=== PATIENT | female | born 1960 | race African-American/Black ===

== ENCOUNTER 2019-09-21 10:34 | Emergency (ER) | payer OTHER ==
[~2019-09-21] VITALS: Ht 162.6 cm; Wt 59.0 kg
--- NOTE | 2019-09-21 10:53 | Emergency Room Report ---
History of Present Illness General Chief Complaint: Chest Pain Source: Patient, EMS Present Illness HPI Disclaimer: Please note that this report is being documented using DRAGON technology. This can lead to erroneous entry secondary to incorrect interpretation by the dictating instrument. HPI: 59-year-old female presents for evaluation of chest pain. She has a history of diet-controlled diabetes and hypertension. She reports a sharp stabbing left-sided chest pain worse by movement and deep inspiration beginning last night. She has had this sensation before but did not seek medical attention at that time. Denying any shortness of breath, cough. Denies recent illness or URI symptoms. Denies abdominal pain, vomiting or diarrhea. Patient states she has been under a tremendous amount of financial stress lately as she is currently disabled and unable to work. She has been noting intermittent palpitations when thinking about her financial conditions and sometimes this leads to chest pain. Denies history of cardiovascular disease. Non-smoker. Current chest pain is 4/10. PMH: Diet-controlled diabetes and hypertension PSH: section, hysterectomy Allergies: Denies Social Hx: Never smoker Allergies: Coded Allergies: No Known Allergies (Unverified , 09/21/19) Review of Systems All Other Systems: negative except mentioned in HPI Physical Exam Vital Signs Date Time Temp Pulse Resp B/P (MAP) Pulse Ox O2 Delivery O2 Flow Rate FiO2 09/21/19 10:29 88 18 205/118 (147) 100 Room Air General: Awake and alert, no acute distress HEENT: NC/AT. EOMI. Chest Wall: There is some reproducible chest pain on AP compression over the left side. No deformity or crepitus palpable Cardiovascular: RRR. S1 and S2 normal. No murmur appreciated Resp: Normal work of breathing. No cough, wheezing or crackles appreciated Abdomen: Abdomen is soft, nondistended. Nontender Skin: Intact. No abrasions, laceration or rash over the exposed skin MSK: Normal tone and bulk. Moving all extremities. No obvious deformity. Neuro: Awake and alert. Mentating appropriately. Medical Decision Making Diagnostic Impression: Primary Impression: Chest pain ER Course 59-year-old female presents for evaluation of chest pain beginning last night. Differential includes was not limited to ACS, angina, bronchitis, pneumonia, pneumothorax, arrhythmia, palpitations, anxiety, musculoskeletal chest pain. We will start cardiac work-up with EKG, chest x-ray, cardiac labs. Will treat with Toradol. She arrives with stable vital signs though was initially very hypertensive for EMS. She no longer takes medications for her hypertension or diabetes and is all diet-controlled. She notes these elevations in her blood pressures over stress recently. Laboratory Tests Test 09/21/19 11:00 White Blood Count 4.4 K/UL (4.8-10.8) L Red Blood Count 5.29 M/UL (4.20-5.40) Hemoglobin 14.8 G/DL (12.0-16.0) Hematocrit 43.9 % (37.0-47.0) Mean Corpuscular Volume 83 FL (80-99) Mean Corpuscular Hemoglobin 27.9 PG (27.0-31.0) Mean Corpuscular Hemoglobin Concent 33.7 G/DL (32.0-36.0) Red Cell Distribution Width 11.3 % (11.6-14.8) L Platelet Count 291 K/UL (150-450) Mean Platelet Volume 6.8 FL (6.5-10.1) Neutrophils (%) (Auto) 60.5 % (45.0-75.0) Lymphocytes (%) (Auto) 31.8 % (20.0-45.0) Monocytes (%) (Auto) 4.6 % (1.0-10.0) Eosinophils (%) (Auto) 2.1 % (0.0-3.0) Basophils (%) (Auto) 1.0 % (0.0-2.0) Sodium Level 138 MMOL/L (136-145) Potassium Level 3.5 MMOL/L (3.5-5.1) Chloride Level 98 MMOL/L (98-107) Carbon Dioxide Level 32 MMOL/L (21-32) Anion Gap 8 mmol/L (5-15) Blood Urea Nitrogen 9 mg/dL (7-18) Creatinine 0.7 MG/DL (0.55-1.30) Estimate Glomerular Filtration Rate > 60 mL/min (>60) Glucose Level 197 MG/DL (74-106) H Calcium Level 9.1 MG/DL (8.5-10.1) Total Bilirubin 0.6 MG/DL (0.2-1.0) Aspartate Amino Transferase (AST) 16 U/L (15-37) Alanine Aminotransferase (ALT) 22 U/L (12-78) Alkaline Phosphatase 111 U/L (46-116) Troponin I 0.007 ng/mL (0.000-0.056) Total Protein 8.7 G/DL (6.4-8.2) H Albumin 4.5 G/DL (3.4-5.0) Globulin 4.2 g/dL Albumin/Globulin Ratio 1.1 (1.0-2.7) EKG Diagnostic Results EKG Time: 10:58 Rate: normal Rhythm: NSR ST Segments: no acute changes Other Impression Sinus rhythm, normal axis, normal intervals, no ST segment changes. Rhythm Strip Diag. Results Rhythm Strip Time: 10:58 EP Interpretation: yes Rate: 70s Rhythm: NSR, no PVC's, no ectopy Chest X-Ray Diagnostic Results Chest X-Ray Diagnostic Results : Chest X-Ray Ordered: Yes # of Views/Limited/Complete: 1 View Indication: Chest Pain EP Interpretation: Yes Interpretation: no consolidation, no effusion, no pneumothorax, no acute cardiopulmonary disease Impression: No acute disease Electronically Signed by: Electronically signed by Dr. Raphael Cade Reevaluation Time: 12:38 Last Vital Signs Date Time Temp Pulse Resp B/P (MAP) Pulse Ox O2 Delivery O2 Flow Rate FiO2 09/21/19 10:29 88 18 205/118 (147) 100 Room Air Reevaluation Impression EKG, chest x-ray and labs including cardiac enzymes returned unremarkable. Vital signs are stable, the patient is chest pain-free and resting comfortably. I believe her symptoms today are likely caused from stress or musculoskeletal chest pain since it is so reproducible. Do not believe she requires inpatient work-up at this time. I discussed the need for outpatient cardiac evaluation as arranged by her PMD to which the patient agrees. She would like to be discharged home at this time and followed up as an outpatient. We discussed reasons to return to the emergency department. She understands and agrees with this treatment plan. Disposition: HOME, SELF-CARE Condition: Stable Referrals: [facility],REFERRING (PCP) Raphael Cade MD Sep 21, 2019 10:53
[2019-09-21 11:00] VITALS: BP_SYST 125; BP_SYST 160; BP_DIAS 69
[2019-09-21] MEDS ORDERED: Ketorolac 30mg Inj IV ONE (11:00)
[2019-09-21 11:18] LABS: EOSINOPHILS % (AUTO) 2.1 % (0.0-3.0); HEMATOCRIT 43.9 % (37.0-47.0); HEMOGLOBIN 14.8 G/DL (12.0-16.0); LYMPHOCYTES % (AUTO) 31.8 % (20.0-45.0); MEAN CORPUSCULAR VOLUME 83 FL (80-99); MONOCYTES % (AUTO) 4.6 % (1.0-10.0); NEUTROPHILS % (AUTO) 60.5 % (45.0-75.0); PLATELET COUNT 291 K/UL (150-450); RED BLOOD COUNT 5.29 M/UL (4.20-5.40); RED CELL DISTRIBUTION WIDTH 11.3 % (11.6-14.8); WHITE BLOOD COUNT 4.4 K/UL (4.8-10.8)
[2019-09-21 11:28] LABS: ANION GAP 8 mmol/L (5-15); BLOOD UREA NITROGEN 9 mg/dL (7-18); CALCIUM 9.1 MG/DL (8.5-10.1); CARBON DIOXIDE 32 MMOL/L (21-32); CHLORIDE 98 MMOL/L (98-107); CREATININE 0.7 MG/DL (0.55-1.30); POTASSIUM 3.5 MMOL/L (3.5-5.1); SODIUM 138 MMOL/L (136-145)
[2019-09-21 11:33] LABS: ALANINE AMINOTRANSFERASE 22 U/L (12-78); ALBUMIN 4.5 G/DL (3.4-5.0); ALBUMIN/GLOBULIN RATIO 1.1 (1.0-2.7); ALKALINE PHOSPHATASE 111 U/L (46-116); ASPARTATE AMINO TRANSFERASE 16 U/L (15-37); BILIRUBIN,TOTAL 0.6 MG/DL (0.2-1.0)
[2019-09-21 12:44] VITALS: BP_SYST 146; BP_SYST 160; BP_DIAS 69; BP_DIAS 93
--- NOTE | 2019-09-21 14:35 | Diagnostic Imaging Report ---
Indication: Chest pain Technique: One view of the chest Comparison: none Findings: Lungs and pleural spaces are clear. Heart size is normal. Impression: No acute process
== END 2019-09-21 13:03 | disposition home or self-care (01) ==
LOC: EDBD 10:34 → EMR 10:38
DX: R07.9 Chest pain, unspecified (principal); E11.9 Type 2 diabetes mellitus without complications; I10 Essential (primary) hypertension; Z90.710 Acquired absence of both cervix and uterus
CPT/HCPCS: 36415; 71045; 80053; 84484; 85025; 93005; 96374; J1885; Z7502; 99284